=== PATIENT | male | born 1970 | race Caucasian/White ===

== ENCOUNTER 2017-09-08 20:38 | Emergency (ER) | payer MEDICAID ==
[~2017-09-08] VITALS: Ht 167.6 cm; Wt 108.9 kg
[~2017-09-08 20:38] MED LIST: ACETAMINOPHEN650 M5 PO; ALPRAZOLAM 0.50.5 M1; AMLODIPINE BESYL5 MG; AMLODIPINE BESYL5 MG PO; AVELOX 400 MG400 MG; AZITHROMYCIN 2250 MG PO; BACLOFEN 10MG T10 M1 PO; BACTRIM DS TAB1 EACH PO; BENZONATATE100 MG PO; CLARITIN10 MG PO; DELSYM30 MG/5 M1 PO; DESYREL100 MG PO; DESYREL150 MG; DILAUDID2 M1 PO; DIOVAN HCT 3201 EAC1 PO; DOXYCYCLINE 10100 M1 PO; DUONEB 2.5-0.5 M3 ML INH; EFFEXOR XR75 MG PO; EFFIENT10 MG PO; ERYTHROMYCIN500 MG PO; FIORICET; FLOMAX0.4 MG PO; HYDROCODONE-AP1 EAC6 PO; HYDROXYZINE HCL25 M1 PO; IBUDONE 5-2001 EACH PO; IBUPROFEN 800800 MG PO; INDERAL LA160 MG PO; INDERAL XL120 MG PO; INDERAL XL80 MG PO; K-DUR 20 MEQ T20 MEQ PO; KEPPRA XR750 MG PO; KEPPRA750 MG PO; LATUDA40 MG PO; LEVAQUIN 500 M500 M2 PO; LISINOPRIL20 MG PO; LOVASTAT20 PO; MAXALT MLT ODT10 MG PO; NAPROSYN500 MG PO; NEXIUM40 MG PO; NORCO 5-325 TA1 EACH PO; NORFLEX100 MG PO; NORTRIPTYLINE H50 M3 PO; NORVASC10 MG PO; OSELB75 PO; PAMELOR25 MG PO; PANTOPRAZOLE SO40 M1 PO; PERCOCET 5-3251 EACH PO; PERCOCET 7.5-31 EACH PO; PHENERGAN 25 MG25 M1 PO; POTASSIUM20 PO; PREDNISONE; PREDNISONE 10 M10 MG PO; PREDNISONE 20 M20 MG PO; PREDNISONE50 MG PO; PROAIR HFA8.5 GM INH; PROPRANOLOL 8080 M1 PO; ROBAXIN 750 MG750 M1 PO; ROXICODONE5 M2 PO; SINGULAIR 10 MG10 M1 PO; SPIRIVA INH; SYMBICORT160 MCG/4. IH; SYMBICORT160 MCG/4. INH; TESSALON PERLE100 MG PO; TESSALON200 MG PO; TOPAMAX 100 MG100 MG NG; TUSSIONEX PENN473 ML PO; TYLENOL325 MG PO; VENTOLIN HFA INH8 GM INH; XANAX 0.5 MG0.5 MG PO; XOPENEX0.31 MG/3 IH; ZANAFLEX4 MG PO; ZANTAC PO; ZANTAC300 MG PO; ZEPATIER 50-101 EACH; ZOFRAN4 MG PO; ZOLOFT PO; [UNRECOGNIZED DRUG - OTHER]; [UNRECOGNIZED DRUG - OTHER] INH; [UNRECOGNIZED DRUG - REMARK]
[2017-09-08] MEDS ORDERED: ZYPREXA 10 MG T10 MG PO (21:01)
[2017-09-08 21:28] LABS: ABSOLUTE BASOPHILS 0.1 thou/uL (0.0-0.2); ABSOLUTE EOSINOPHILS 0.1 thou/uL (0.0-0.7); ABSOLUTE LYMPHOCYTES 4.6 thou/uL (0.8-5.3); ABSOLUTE MONOCYTES 0.8 thou/uL (0.0-1.2); ABSOLUTE NEUTROPHILS 5.6 thou/uL (1.6-8.1); BASOPHILS 0.8 %; EOSINOPHILS 1.2 %; HEMOGLOBIN 15.8 gm/dL (14.0-18.0); LYMPHOCYTES 40.9 %; MCH 34.5 pg (26.0-34.0); MCHC 34.5 g/dL (28.0-37.0); MCV 100.2 fL (80.0-100.0); MONOCYTES 7.5 %; MPV 9.4 fl. (7.2-11.1); NUCLEATED RBCS 0 /100WBC; PLATELET COUNT* 182 thou/uL (150-400); POLYS 49.6 %; RBC 4.59 mil/uL (4.50-6.00); RDW-CV 14.9 % (10.5-14.5); WBC 11.3 thou/uL (4.0-11.0)
[2017-09-08 21:35] LABS: CALCIUM 8.4 mg/dL (8.5-10.1); CREATININE 1.3 mg/dL (0.6-1.3); POTASSIUM 3.4 mmol/L (3.5-5.1)
[2017-09-08 21:40] LABS: ALBUMIN 3.9 g/dL (3.4-5.0); TOTAL BILIRUBIN 0.3 mg/dL (<0.1-1.0); TOTAL PROTEIN 7.1 g/dL (6.4-8.2)
[2017-09-08 22:56] VITALS: BP 113/68
--- NOTE | 2017-09-09 10:48 | EKG ---
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
== END 2017-09-08 22:59 | disposition home or self-care (01) ==
LOC: M.ERS 20:38
PROVIDERS: Family Medicine
DX: G43.909 Migraine, unspecified, not intractable, without status migrainosus (principal); J44.9 Chronic obstructive pulmonary disease, unspecified; I10 Essential (primary) hypertension; F41.9 Anxiety disorder, unspecified; F32.9 Major depressive disorder, single episode, unspecified; F17.210 Nicotine dependence, cigarettes, uncomplicated; Z86.19 Personal history of other infectious and parasitic diseases; Z90.49 Acquired absence of other specified parts of digestive tract; Z88.0 Allergy status to penicillin; Z88.5 Allergy status to narcotic agent; Z88.6 Allergy status to analgesic agent; Z88.8 Allergy status to other drugs, medicaments and biological substances

== ENCOUNTER 2018-01-13 05:41 | Emergency (ER) | payer MEDICAID ==
[~2018-01-13] VITALS: Ht 165.1 cm; Wt 109.8 kg
[~2018-01-13 05:41] MED LIST changes: +ZYPREXA 10 MG T10 MG PO
[2018-01-13] MEDS ORDERED: KEPPRA1000 MG PO (05:59)
[2018-01-13] MEDS ORDERED: HYDROXYZINE HCL25 M1 PO (06:00)
[2018-01-13] MEDS ORDERED: ZPAK PO (06:14)
[2018-01-13] MEDS ORDERED: PREDNISONE 20 M20 M1 PO ×2 (06:14→06:36)
[2018-01-13] MEDS ORDERED: LEVAQUIN 500 M500 MG PO (06:36)
[2018-01-13 06:42] VITALS: BP 176/102
== END 2018-01-13 06:44 | disposition home or self-care (01) ==
LOC: M.ERS 05:41
DX: J40 Bronchitis, not specified as acute or chronic (principal); M54.9 Dorsalgia, unspecified; R11.10 Vomiting, unspecified; R10.9 Unspecified abdominal pain; F17.210 Nicotine dependence, cigarettes, uncomplicated; J44.9 Chronic obstructive pulmonary disease, unspecified; I10 Essential (primary) hypertension; F41.9 Anxiety disorder, unspecified; F32.9 Major depressive disorder, single episode, unspecified; G43.909 Migraine, unspecified, not intractable, without status migrainosus; G25.81 Restless legs syndrome; M19.90 Unspecified osteoarthritis, unspecified site; Z90.49 Acquired absence of other specified parts of digestive tract; Z90.89 Acquired absence of other organs; Z88.6 Allergy status to analgesic agent; Z88.8 Allergy status to other drugs, medicaments and biological substances; Z88.5 Allergy status to narcotic agent; Z88.0 Allergy status to penicillin

== ENCOUNTER 2018-01-19 16:50 | Inpatient (IN) | payer MEDICAID ==
[~2018-01-19] VITALS: Ht 165.1 cm; Wt 114.3 kg
[2018-01-19] VITALS (11 sets, daily range): BP systolic 73–134; BP diastolic 46–77
[~2018-01-19 16:50] MED LIST changes: +KEPPRA1000 MG PO; +LEVAQUIN 500 M500 MG PO; +PREDNISONE 20 M20 M1 PO; +ZPAK PO
[2018-01-19] MEDS ORDERED: PRINIVIL20 MG PO (17:26)
[2018-01-19 17:48] LABS: ABSOLUTE BASOPHILS 0.1 thou/uL (0.0-0.2); ABSOLUTE EOSINOPHILS 0.2 thou/uL (0.0-0.7); ABSOLUTE LYMPHOCYTES 6.4 thou/uL (0.8-5.3); ABSOLUTE MONOCYTES 1.5 thou/uL (0.0-1.2); ABSOLUTE NEUTROPHILS 8.8 thou/uL (1.6-8.1); BASOPHILS 0.6 %; EOSINOPHILS 0.9 %; HEMATOCRIT 41.1 % (42.0-52.0); HEMOGLOBIN 13.6 gm/dL (14.0-18.0); MCH 33.7 pg (26.0-34.0); MCHC 33.2 g/dL (28.0-37.0); MCV 101.4 fL (80.0-100.0); MONOCYTES 8.8 %; MPV 9.5 fl. (7.2-11.1); NUCLEATED RBCS 0 /100WBC; PLATELET COUNT* 208 thou/uL (150-400); POLYS 51.7 %; RBC 4.05 mil/uL (4.50-6.00); RDW-CV 14.4 % (10.5-14.5)
[2018-01-19 17:51] LABS: ANION GAP 14 mmol/L (7-16); BUN 60 mg/dL (7-18); CALCIUM 7.2 mg/dL (8.5-10.1); CHLORIDE 102 mmol/L (98-107); CO2 22 mmol/L (21-32); CREATININE 3.9 mg/dL (0.6-1.3); GLUCOSE 110 mg/dL (70-99); SODIUM 138 mmol/L (136-145)
[2018-01-19 17:58] LABS: ALBUMIN 3.3 g/dL (3.4-5.0); ALKALINE PHOSPHATASE 91 U/L (46-116); SGOT 68 U/L (15-37); SGPT 93 U/L (30-65); TOTAL BILIRUBIN 0.3 mg/dL (<0.1-1.0); TOTAL PROTEIN 6.2 g/dL (6.4-8.2); TROPONIN-I LEVEL <0.06 ng/mL (<0.06)
[2018-01-19 19:36] LABS: URINE BILIRUBIN NEGATIVE (Negative); URINE BLOOD NEGATIVE (Negative); URINE CLARITY CLEAR; URINE COLOR YELLOW; URINE GLUCOSE-RANDOM NEGATIVE (Negative); URINE KETONES NEGATIVE (Negative); URINE LEUKOCYTES-REFLEX NEGATIVE (Negative); URINE NITRITE-REFLEX NEGATIVE (Negative); URINE PROTEIN NEGATIVE (Negative); URINE SPECIFIC GRAVITY >= 1.030 (1.005-1.030); URINE UROBILINOGEN 0.2 E.U./dl (0.2-1.0)
[2018-01-19 19:43] LABS: AMP/METHAMP POSITIVE (Negative); BARBITURATES POSITIVE (Negative); BENZODIAZEPINES Negative (Negative); COCAINE Negative (Negative); METHADONE Negative (Negative); OPIATES POSITIVE (Negative); PCP Negative (Negative); THC Negative (Negative)
[2018-01-19 22:25] LABS: PROTIME 10.2 Seconds (9.20-11.50)
[2018-01-19 22:26] LABS: MAGNESIUM 2.2 mg/dL (1.8-2.4); PHOSPHORUS* 6.6 mg/dL (2.5-4.9)
[2018-01-19 23:22] LABS: BE -4.4 mmol/L (-2 to +3); HCO3 21.6 mmol/L (22.0-26.0)
[2018-01-20] VITALS (19 sets, daily range): BP systolic 98–137; BP diastolic 61–87
[2018-01-20 00:48] LABS: CALCIUM 6.8 mg/dL (8.5-10.1); POTASSIUM 3.2 mmol/L (3.5-5.1)
[2018-01-20 00:50] LABS: CREATININE 2.8 mg/dL (0.6-1.3)
[2018-01-20 05:25] LABS: HEMATOCRIT 41.2 % (42.0-52.0); HEMOGLOBIN 13.7 gm/dL (14.0-18.0); MCH 33.9 pg (26.0-34.0); MCHC 33.2 g/dL (28.0-37.0); MCV 102.1 fL (80.0-100.0); MPV 9.4 fl. (7.2-11.1); RBC 4.03 mil/uL (4.50-6.00); RDW-CV 14.1 % (10.5-14.5); WBC 8.3 thou/uL (4.0-11.0)
[2018-01-20 08:59] LABS: CALCIUM 7.1 mg/dL (8.5-10.1)
[2018-01-20 09:09] LABS: CREATININE 1.8 mg/dL (0.6-1.3); POTASSIUM 4.6 mmol/L (3.5-5.1)
--- NOTE | 2018-01-20 17:03 | EKG ---
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1970 Requested By: Servando Stinson Order Number: [id number] MD: Yimi Shepard Measurements Intervals [place] Rate: 74 P: 1 VA: 139 QRS: 15 QRSD: 116 T: 36 QT: 399 QTc: 443 Interpretive Statements Sinus rhythm Nonspecific intraventricular conduction delay Low voltage, precordial leads septal infarct, old Compared to ECG 09/08/2017 21:25:09 Low QRS voltage now present Electronically Signed On 01-20-2018 17:03:11 CDT by Yimi Shepard [email or web address] <ELECTRONICALLY SIGNED> By: Yimi Shepard MD, FAC 01/20/18 1703 1710 1710 Yimi Shepard MD, [facility] /EPI
[2018-01-21] VITALS (11 sets, daily range): BP systolic 128–166; BP diastolic 80–97
[2018-01-21 05:06] LABS: HEMATOCRIT 39.5 % (42.0-52.0); HEMOGLOBIN 13.1 gm/dL (14.0-18.0); MCH 34.2 pg (26.0-34.0); MCHC 33.3 g/dL (28.0-37.0); MCV 102.7 fL (80.0-100.0); MPV 9.5 fl. (7.2-11.1); RBC 3.84 mil/uL (4.50-6.00); RDW-CV 14.2 % (10.5-14.5); WBC 15.7 thou/uL (4.0-11.0)
[2018-01-21 05:44] LABS: CALCIUM 7.3 mg/dL (8.5-10.1); CREATININE 1.1 mg/dL (0.6-1.3); POTASSIUM 5.1 mmol/L (3.5-5.1)
[2018-01-21 23:07] LABS: HEPATITIS B SURFACE AG Negative (Negative)
[2018-01-22 00:30] VITALS: BP 166/97
[2018-01-22 05:48] LABS: HEMATOCRIT 36.8 % (42.0-52.0); HEMOGLOBIN 12.2 gm/dL (14.0-18.0); MCH 33.9 pg (26.0-34.0); MCHC 33.1 g/dL (28.0-37.0); MCV 102.6 fL (80.0-100.0); MPV 9.5 fl. (7.2-11.1); RBC 3.59 mil/uL (4.50-6.00); RDW-CV 14.2 % (10.5-14.5); WBC 10.8 thou/uL (4.0-11.0)
[2018-01-22 05:52] LABS: CALCIUM 7.4 mg/dL (8.5-10.1); POTASSIUM 3.5 mmol/L (3.5-5.1)
[2018-01-22 08:17] VITALS: BP 143/84
[2018-01-22 15:25] VITALS: BP 154/102
[2018-01-22 20:40] VITALS: BP 148/75
[2018-01-23] MEDS ORDERED: MUCINEX1200 MG PO (08:12)
[2018-01-23] MEDS ORDERED: LEVAQUIN 750 M750 MG PO (08:12)
[2018-01-23] MEDS ORDERED: PREDNISONE 10 M10 MG PO (08:12)
[2018-01-23 10:04] VITALS: BP 148/75
[2018-01-23 11:52] VITALS: BP 161/97
== END 2018-01-23 12:45 | disposition home or self-care (01) | DRG 871 ==
LOC: M.ERS 16:50 → M.TBA-ER 19:57 → M.ICU 19:57 → M.ORTHSURG 01-22 00:10
PROVIDERS: Emergency Medicine Emergency Medical Services; ADMIT Internal Medicine
DX: A41.9 Sepsis, unspecified organism (principal); J96.01 Acute respiratory failure with hypoxia; J15.9 Unspecified bacterial pneumonia; N17.0 Acute kidney failure with tubular necrosis; J44.0 Chronic obstructive pulmonary disease with (acute) lower respiratory infection; B17.9 Acute viral hepatitis, unspecified; J44.1 Chronic obstructive pulmonary disease with (acute) exacerbation; R65.20 Severe sepsis without septic shock; G47.33 Obstructive sleep apnea (adult) (pediatric); F41.8 Other specified anxiety disorders; I10 Essential (primary) hypertension; G43.909 Migraine, unspecified, not intractable, without status migrainosus; G25.81 Restless legs syndrome; E87.6 Hypokalemia; R73.9 Hyperglycemia, unspecified; H91.91 Unspecified hearing loss, right ear; F17.210 Nicotine dependence, cigarettes, uncomplicated; F15.10 Other stimulant abuse, uncomplicated; W18.30XA Fall on same level, unspecified, initial encounter; Y93.01 Activity, walking, marching and hiking; Y92.098 Other place in other non-institutional residence as the place of occurrence of the external cause; Y99.8 Other external cause status; Z88.6 Allergy status to analgesic agent; Z88.0 Allergy status to penicillin; Z88.8 Allergy status to other drugs, medicaments and biological substances; Z79.899 Other long term (current) drug therapy; Z90.89 Acquired absence of other organs; Z90.49 Acquired absence of other specified parts of digestive tract

== ENCOUNTER 2018-11-02 21:40 | Emergency (ER) | payer MEDICAID ==
[~2018-11-02] VITALS: Ht 167.6 cm; Wt 105.7 kg
[~2018-11-02 21:40] MED LIST changes: +LEVAQUIN 750 M750 MG PO; +MUCINEX1200 MG PO; +PRINIVIL20 MG PO
[2018-11-02 22:06] LABS: ABSOLUTE BASOPHILS 0.1 thou/uL (0.0-0.2); ABSOLUTE LYMPHOCYTES 1.5 thou/uL (0.8-5.3); ABSOLUTE MONOCYTES 0.1 thou/uL (0.0-1.2); ABSOLUTE NEUTROPHILS 8.5 thou/uL (1.6-8.1); BASOPHILS 0.6 %; EOSINOPHILS 0.1 %; HEMATOCRIT 49.2 % (42.0-52.0); LYMPHOCYTES 15.2 %; MCH 34.2 pg (26.0-34.0); MCHC 34.5 g/dL (28.0-37.0); MCV 99.2 fL (80.0-100.0); MONOCYTES 0.5 %; MPV 9.8 fl. (7.2-11.1); NUCLEATED RBCS 0 /100WBC; PLATELET COUNT* 209 thou/uL (150-400); POLYS 83.6 %; RBC 4.97 mil/uL (4.50-6.00); WBC 10.1 thou/uL (4.0-11.0)
[2018-11-02 22:07] LABS: URINE BILIRUBIN NEGATIVE (Negative); URINE BLOOD NEGATIVE (Negative); URINE CLARITY CLEAR; URINE COLOR YELLOW; URINE GLUCOSE-RANDOM NEGATIVE (Negative); URINE KETONES TRACE (Negative); URINE LEUKOCYTES-REFLEX NEGATIVE (Negative); URINE NITRITE-REFLEX NEGATIVE (Negative); URINE PROTEIN 1+ (Negative); URINE SPECIFIC GRAVITY 1.025 (1.005-1.030); URINE UROBILINOGEN 0.2 E.U./dl (0.2-1.0)
[2018-11-02 22:18] LABS: ANION GAP 9 mmol/L (7-16); BUN 17 mg/dL (7-18); CHLORIDE 106 mmol/L (98-107); CO2 30 mmol/L (21-32); CREATININE 1.4 mg/dL (0.6-1.3); GLUCOSE 193 mg/dL (70-99); POTASSIUM 3.2 mmol/L (3.5-5.1); SODIUM 145 mmol/L (136-145)
[2018-11-02 22:19] LABS: PROTIME 10.2 Seconds (9.20-11.50)
[2018-11-02 22:21] LABS: AMP/METHAMP Negative (Negative); BARBITURATES Negative (Negative); BENZODIAZEPINES Negative (Negative); COCAINE Negative (Negative); METHADONE Negative (Negative); OPIATES Negative (Negative); PCP Negative (Negative); THC Negative (Negative)
[2018-11-02 22:29] LABS: ALBUMIN 4.2 g/dL (3.4-5.0); ALKALINE PHOSPHATASE 116 U/L (46-116); LIPASE 157 U/L (73-393); NT-PRO BRAIN NAT PEPTIDE 86 pg/mL (<300); SGOT 24 U/L (15-37); SGPT 46 U/L (30-65); TOTAL BILIRUBIN 0.3 mg/dL (<0.1-1.0); TROPONIN-I LEVEL <0.06 ng/mL (<0.06)
[2018-11-03] MEDS ORDERED: PROAIR HFA8.5 GM INH (00:43)
[2018-11-03] MEDS ORDERED: ALBUTEROL2.5 MG/31 INH (00:43)
[2018-11-03] MEDS ORDERED: PREDNISONE50 MG PO (00:43)
[2018-11-03 00:50] VITALS: BP 165/90
--- NOTE | 2018-11-03 10:21 | EKG ---
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1970 Requested By: Rocio Orantes Order Number: [id number] MD: Kiran Freeman Measurements Intervals [place] Rate: 83 P: 8 ME: 146 QRS: -13 QRSD: 113 T: 9 QT: 403 QTc: 474 Interpretive Statements Sinus rhythm Borderline intraventricular conduction delay Baseline wander in lead(s) II Compared to ECG 01/19/2018 17:10:05 Myocardial infarct finding no longer present Electronically Signed On 11-03-2018 10:21:11 CDT by Krian Freeman [email or web address] <ELECTRONICALLY SIGNED> By: Kiran Freeman MD, [facility] 11/03/18 1021 2148 2148 Kiran Freeman MD, [facility] /EPI
== END 2018-11-03 00:50 | disposition home or self-care (01) ==
LOC: M.ERS 21:40
PROVIDERS: Emergency Medicine
DX: J44.9 Chronic obstructive pulmonary disease, unspecified (principal); I10 Essential (primary) hypertension; G25.81 Restless legs syndrome; F41.9 Anxiety disorder, unspecified; F32.9 Major depressive disorder, single episode, unspecified; G43.909 Migraine, unspecified, not intractable, without status migrainosus; F17.210 Nicotine dependence, cigarettes, uncomplicated; Z88.0 Allergy status to penicillin; Z88.5 Allergy status to narcotic agent; Z88.8 Allergy status to other drugs, medicaments and biological substances; Z86.19 Personal history of other infectious and parasitic diseases; Z90.49 Acquired absence of other specified parts of digestive tract; Z98.890 Other specified postprocedural states; Z79.899 Other long term (current) drug therapy

== ENCOUNTER 2019-12-31 17:28 | Emergency (ER) | payer MEDICAID ==
[~2019-12-31] VITALS: Ht 165.1 cm; Wt 118.8 kg
[~2019-12-31 17:28] MED LIST changes: +ALBUTEROL2.5 MG/31 INH
[2019-12-31] MEDS ORDERED: HYDROCHLOROTHIA25 M2 PO (17:50)
[2019-12-31] MEDS ORDERED: COZAAR 25 MG TA25 M1 PO (17:54)
[2019-12-31] MEDS ORDERED: NEURONTIN 300M300 M2 PO (17:55)
[2019-12-31 18:08] LABS: URINE BILIRUBIN NEGATIVE (Negative); URINE BLOOD NEGATIVE (Negative); URINE CLARITY CLEAR; URINE COLOR YELLOW; URINE GLUCOSE-RANDOM NEGATIVE (Negative); URINE KETONES NEGATIVE (Negative); URINE LEUKOCYTES-REFLEX NEGATIVE (Negative); URINE NITRITE-REFLEX NEGATIVE (Negative); URINE PROTEIN 1+ (Negative); URINE SPECIFIC GRAVITY >= 1.030 (1.005-1.030); URINE UROBILINOGEN 0.2 E.U./dl (0.2-1.0)
[2019-12-31] MEDS ORDERED: IBUPROFEN 800800 M1 PO (18:09)
[2019-12-31 18:16] LABS: ABSOLUTE BASOPHILS 0.1 thou/uL (0.0-0.2); ABSOLUTE EOSINOPHILS 0.2 thou/uL (0.0-0.7); ABSOLUTE LYMPHOCYTES 3.1 thou/uL (0.8-5.3); ABSOLUTE MONOCYTES 0.8 thou/uL (0.0-1.2); ABSOLUTE NEUTROPHILS 5.7 thou/uL (1.6-8.1); BASOPHILS 0.8 %; EOSINOPHILS 2.3 %; HEMATOCRIT 45.7 % (42.0-52.0); HEMOGLOBIN 15.8 gm/dL (14.0-18.0); LYMPHOCYTES 31.1 %; MCHC 34.6 g/dL (28.0-37.0); MCV 95.2 fL (80.0-100.0); MONOCYTES 7.7 %; MPV 8.6 fl. (7.2-11.1); NUCLEATED RBCS 0 /100WBC; PLATELET COUNT* 172 thou/uL (150-400); POLYS 58.1 %; RDW-CV 13.6 % (10.5-14.5); WBC 9.8 thou/uL (4.0-11.0)
[2019-12-31 18:22] LABS: CALCIUM 9.3 mg/dL (8.5-10.1); CREATININE 1.5 mg/dL (0.6-1.3); POTASSIUM 3.7 mmol/L (3.5-5.1)
[2019-12-31 20:03] VITALS: BP 148/78
== END 2019-12-31 20:04 | disposition home or self-care (01) ==
LOC: M.ERS 17:28
PROVIDERS: Nurse Practitioner Family
DX: I10 Essential (primary) hypertension (principal); G43.909 Migraine, unspecified, not intractable, without status migrainosus; J44.9 Chronic obstructive pulmonary disease, unspecified; J45.909 Unspecified asthma, uncomplicated; G25.81 Restless legs syndrome; F41.9 Anxiety disorder, unspecified; F32.9 Major depressive disorder, single episode, unspecified; F17.210 Nicotine dependence, cigarettes, uncomplicated; Z90.49 Acquired absence of other specified parts of digestive tract; Z88.0 Allergy status to penicillin; Z88.6 Allergy status to analgesic agent; Z88.8 Allergy status to other drugs, medicaments and biological substances

== ENCOUNTER → 2020-05-29 | Outpatient (CLI) | payer MEDICAID ==
[~2020-05-29] MED LIST changes: +COZAAR 25 MG TA25 M1 PO; +HYDROCHLOROTHIA25 M2 PO; +IBUPROFEN 800800 M1 PO; +NEURONTIN 300M300 M2 PO
== END ==
LOC: M.ULTRA 05-26 08:49
PROVIDERS: ATTEND Internal Medicine Critical Care Medicine
DX: J84.10 Pulmonary fibrosis, unspecified (principal); J98.11 Atelectasis; R60.0 Localized edema; J44.9 Chronic obstructive pulmonary disease, unspecified; J45.901 Unspecified asthma with (acute) exacerbation; R07.9 Chest pain, unspecified

== ENCOUNTER → 2020-06-21 | Outpatient (CLI) | payer MEDICAID ==
[~2020-06-21] MED LIST changes: +FLEXERIL; +GLIPIZIDE 10 MG10 MG PO; +METFORMIN HCL500 M3 PO; +NEXIUM 40 MG CA40 M1 PO; +ROPINIROLE HCL0.5 MG PO; +TRELEGY ELLIPT1 EACH; +ZESTRIL40 MG PO
== END ==
LOC: M.PC 06-19 10:30
PROVIDERS: ATTEND Physical Medicine & Rehabilitation
DX: M47.814 Spondylosis without myelopathy or radiculopathy, thoracic region (principal); M47.816 Spondylosis without myelopathy or radiculopathy, lumbar region; M50.30 Other cervical disc degeneration, unspecified cervical region; J44.9 Chronic obstructive pulmonary disease, unspecified; Z72.0 Tobacco use

== ENCOUNTER → 2020-07-18 | Outpatient (CLI) | payer MEDICAID ==
--- NOTE | 2020-07-24 01:29 | PF ---
[address] [address] PULMONARY FUNCTION REPORT Name: TANI CAPUTO Room: [facility].#: [id number] Admission: 07/18/20 Attend Phys: Perez Alexander MD Discharge: Date of : 68 Report #: [id number] THIS REPORT FOR: cc: Elisa Carrillo Mischelle RNP ~ Perez Alexander MD DATE OF SERVICE: 07/18/2020 PULMONARY FUNCTION TEST The FEV1/FVC ratio is normal at 73% with an FVC decreased to 62% and FEV1 decreased to 59%. The VKC25-57 is also decreased to 49%. Total lung capacity is markedly decreased to 49% with residual volume decreased to 16% only. The DLCO as adjusted for hemoglobin is decreased to 37%. Spirometry was also repeated after the administration of a bronchodilator. There is a 56% increase in UTI98-02 after the administration of a bronchodilator. There is no other significant change in spirometry after the bronchodilator. The patient's post-bronchodilator FEV1 is 2.02 liters. IMPRESSION: 1. There is severe restriction with the total lung capacity decreased to 49% only. 2. Considering that there is a 56% increase in MMF90-39 after the administration of a bronchodilator, it appears likely that there is a component of obstruction as well, likely mild. 3. There is severe reduction in DLCO to 37% only. <ELECTRONICALLY SIGNED> By: Perez Alexander MD 07/24/20 0129 0049 0126Atonya Alexander MD /nt
== END ==
LOC: M.PUL 12:03
PROVIDERS: ATTEND Internal Medicine Critical Care Medicine
DX: R06.02 Shortness of breath (principal)

== ENCOUNTER 2020-08-23 14:07 | Emergency (ER) | payer MEDICAID ==
[~2020-08-23] VITALS: Ht 167.6 cm; Wt 110.2 kg
[2020-08-23] MEDS ORDERED: LOPID600 MG PO (14:21)
[2020-08-23] MEDS ORDERED: PROPRANOLOL 8080 MG PO (14:22)
[2020-08-23] MEDS ORDERED: FLOMAX0.4 MG PO (14:25)
[2020-08-23] MEDS ORDERED: HYDROCHLOROTHIA25 M1 PO (14:27)
[2020-08-23] MEDS ORDERED: LIPITOR80 MG PO (14:28)
[2020-08-23] MEDS ORDERED: TOPROL XL25 MG PO (14:28)
[2020-08-23] MEDS ORDERED: SYMBICORT160 MCG/4. INH (14:28)
[2020-08-23 14:29] LABS: ABSOLUTE BASOPHILS 0.1 thou/uL (0.0-0.2); ABSOLUTE EOSINOPHILS 0.1 thou/uL (0.0-0.7); ABSOLUTE LYMPHOCYTES 3.3 thou/uL (0.8-5.3); ABSOLUTE MONOCYTES 0.9 thou/uL (0.0-1.2); BASOPHILS 0.9 %; EOSINOPHILS 0.8 %; HEMATOCRIT 49.9 % (42.0-52.0); HEMOGLOBIN 16.7 gm/dL (14.0-18.0); LYMPHOCYTES 26.7 %; MCH 32.2 pg (26.0-34.0); MCHC 33.4 g/dL (28.0-37.0); MCV 96.6 fL (80.0-100.0); MONOCYTES 7.5 %; MPV 9.4 fl. (7.2-11.1); NUCLEATED RBCS 0 /100WBC; PLATELET COUNT* 205 thou/uL (150-400); POLYS 64.1 %; RBC 5.17 mil/uL (4.50-6.00); RDW-CV 14.9 % (10.5-14.5); WBC 12.5 thou/uL (4.0-11.0)
[2020-08-23] MEDS ORDERED: ALBUTEROL2.5 MG/31 INH (14:29)
[2020-08-23] MEDS ORDERED: TERBINAFINE15 G1 TOP (14:30)
[2020-08-23] MEDS ORDERED: TIZANIDINE HCL4 M1 PO (14:30)
[2020-08-23] MEDS ORDERED: ESOMEPRAZOLE MA40 MG PO (14:30)
[2020-08-23 14:40] LABS: POTASSIUM 4.2 mmol/L (3.5-5.1)
[2020-08-23 14:42] LABS: APTT 28.2 Seconds (25.0-31.3); PROTIME 11.1 Seconds (9.20-11.50)
[2020-08-23 14:53] LABS: ALBUMIN 4.9 g/dL (3.4-5.0); CK-MB MASS 5.4 ng/mL (<0.5-3.6); MAGNESIUM 1.6 mg/dL (1.8-2.4); TOTAL BILIRUBIN 0.5 mg/dL (<0.1-1.0)
--- NOTE | 2020-08-23 15:50 | EKG ---
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1970 Requested By: Davion Murphy Order Number: [id number] MD: Yimi Shepard Measurements Intervals [place] Rate: 100 P: 63 MO: 169 QRS: 18 QRSD: 114 T: 39 QT: 332 QTc: 429 Interpretive Statements Sinus tachycardia Low voltage, extremity leads septal infarct, old Compared to ECG 11/02/2018 21:48:02 Low QRS voltage now present Myocardial infarct finding now present Sinus rhythm no longer present Electronically Signed On 08-23-2020 15:50:29 CDT by Yimi Shepard [email or web address] <ELECTRONICALLY SIGNED> By: Yimi Shepard MD, [facility] 08/23/20 1550 141 141 Yimi Shepard MD, [facility] /EPI
[2020-08-23 16:01] VITALS: BP 136/78
== END 2020-08-23 16:02 | disposition home or self-care (01) ==
LOC: M.ERS 14:07
PROVIDERS: Family Medicine
DX: R07.89 Other chest pain (principal); R06.00 Dyspnea, unspecified; J44.9 Chronic obstructive pulmonary disease, unspecified; I10 Essential (primary) hypertension; G43.909 Migraine, unspecified, not intractable, without status migrainosus; G25.81 Restless legs syndrome; Z90.89 Acquired absence of other organs; F17.210 Nicotine dependence, cigarettes, uncomplicated; Z88.5 Allergy status to narcotic agent; Z88.0 Allergy status to penicillin; Z88.6 Allergy status to analgesic agent; Z88.8 Allergy status to other drugs, medicaments and biological substances; Z86.19 Personal history of other infectious and parasitic diseases; Z90.49 Acquired absence of other specified parts of digestive tract

== ENCOUNTER → 2020-12-22 | Outpatient (CLI) | payer MEDICAID ==
[~2020-12-22] MED LIST changes: +ESOMEPRAZOLE MA40 MG PO; +HYDROCHLOROTHIA25 M1 PO; +LIPITOR80 MG PO; +LOPID600 MG PO; +PROPRANOLOL 8080 MG PO; +TERBINAFINE15 G1 TOP; +TIZANIDINE HCL4 M1 PO; +TOPROL XL25 MG PO
--- NOTE | 2021-01-28 13:27 | SLEEP ---
[address] [address] SLEEP STUDY REPORT Name: TANI CAPUTO Room: [facility]#: [id number] Admission: 12/22/20 Attend Phys: Perez Alexander MD Discharge: Date of : 68 Report #: [id number] THIS REPORT FOR: cc: Perez Alexander MD,Perez Alexander,Perez CHATTERJEE ~ DATE OF STUDY: 12/22/2020 SLEEP STUDY INDICATION FOR SLEEP STUDY: Excessive daytime sleepiness and disturbed sleep persisting despite use of BiPAP, also difficulty tolerating high BiPAP pressures. Sleep study is being performed to reassess optimal BiPAP pressures. INTERPRETATION: Total duration of the study is 357 minutes, out of which he was asleep for 345 minutes with an overall sleep efficiency of 96.8%. Sleep onset initially occurred 10 minutes after lying down in bed and REM onset was 54 minutes after sleep onset. N1 sleep duration is 0.6%, N2 duration is 88%, N3 duration is 8% and REM duration is 3%. Body position data indicates the patient is lying supine throughout the sleep study. Mean heart rate was 74. Periodic limb movement index is normal at 2.8. Arousal index is also normal at 4.5. This is a BiPAP titration. Review of the BiPAP titration indicates the patient was initially started on a BiPAP of 8/4. This was gradually increased to a maximal BiPAP pressure of 21/14. The patient did have occasional sleep related respiratory events on lower BiPAP pressures. These eventually subsided on a BiPAP pressure of 17/9. The patient remains well controlled with higher BiPAP pressures up to 21/14, O2 saturation is also adequately maintained with this therapy. IMPRESSION: Obstructive sleep apnea, adequately controlled with a BiPAP pressure range of 17/9-21/14. The patient is noted to be supine throughout the sleep study, evaluation in REM sleep is limited. RECOMMENDATIONS: Recommend a BiPAP of 17/9 with heated humidity and mask per patient preference while asleep. During the sleep study, a ResMed F20 full face mask, size medium, was used. Recommend weight loss. Recommend avoiding driving and other activities [place] [address] SLEEP STUDY REPORT Name: TANI CAPUTO Room: [facility]#: [id number] Admission: 12/22/20 Attend Phys: Perez Alexander MD Discharge: Date of : 68 Report #: [id number] This entire sleep study was reviewed by board certified sleep physician. <ELECTRONICALLY SIGNED> By: Perez Alexander MD 01/28/21 1327 1751 1810Perez Alexander MD /nt
== END ==
LOC: M.SLEEPLAB 11-03 21:00
PROVIDERS: ATTEND Internal Medicine Critical Care Medicine
DX: G47.33 Obstructive sleep apnea (adult) (pediatric) (principal)

== ENCOUNTER → 2021-06-26 | Outpatient (CLI) | payer MEDICAID | LOC: M.LAB 14:20 | PROVIDERS: ATTEND Internal Medicine Critical Care Medicine | DX: J45.50 Severe persistent asthma, uncomplicated (principal) ==